=== PATIENT | female | born 1995 | race Caucasian/White ===

== ENCOUNTER 2021-04-22 11:03 | Emergency (ER) | payer OTHER ==
[2021-04-22 11:19] VITALS: BP 101/66; PULSE 93; TEMP 98.3; BMI 21.9
== END 2021-04-22 12:09 | disposition home or self-care (01) ==
LOC: JERFT 11:03
DX: R22.0 Localized swelling, mass and lump, head (principal)
CPT/HCPCS: 99281-25

== ENCOUNTER 2022-07-13 11:15 | Emergency (ER) | payer OTHER ==
[2022-07-13 11:57] VITALS: BP 97/65; PULSE 89; RESP 19; TEMP 98.8; BMI 22.8
== END 2022-07-13 13:55 | disposition home or self-care (01) ==
LOC: JER 11:15
DX: B34.9 Viral infection, unspecified (principal)
CPT/HCPCS: 0241U-QW; 99283-25

== ENCOUNTER 2022-12-06 15:59 | Emergency (ER) | payer OTHER ==
[2022-12-06 16:17] VITALS: BP 97/58; PULSE 104; RESP 18; TEMP 97.9; BMI 24.7
[2022-12-06 18:34] LABS: BASO % 0.2 % (0-2.0); EOS % 1.2 % (0-4.5); HEMATOCRIT 40.6 % (32.4-45.2); HEMOGLOBIN 14.2 GM/dL (10.7-15.3); LYMPH % 21.3 % (8-40); MCH 28.2 pg (25.7-33.7); MCHC 34.8 g/dl (32.0-36.0); MEAN CELL VOLUME 80.8 fl (80-96); MEAN PLT VOLUME 8.4 fl (7.5-11.1); MONO % 5.1 % (3.8-10.2); NEUT % 72.2 % (42.8-82.8); PLATELET COUNT 320 10^3/uL (134-434); RBC 5.03 M/mm3 (3.60-5.2); RDW 12.8 % (11.6-15.6); WHITE BLOOD COUNT 10.1 K/mm3 (4.0-10.0)
[2022-12-06 18:47] LABS: CHLORIDE 105 mmol/L (98-107); SODIUM 138 mmol/L (136-145)
[2022-12-06 18:49] LABS: CALCIUM 9.7 mg/dL (8.5-10.1)
[2022-12-06 18:50] LABS: ANION GAP 5 MMOL/L (8-16); BLOOD UREA NITROGEN 9.4 mg/dL (7-18); CO2 29 mmol/L (21-32); GLUCOSE,RANDOM 92 mg/dL (74-106)
[2022-12-06 18:53] LABS: CREATININE 0.6 mg/dL (0.55-1.3)
[2022-12-06 19:11] LABS: ERYTHROCYTE SEDIMENTATION RATE 5 mm/hr (0-20)
[2022-12-06] MEDS ORDERED: ACETAMINOPHEN 1000 MG/100 ML BAG IVPB ONE (19:15)
[2022-12-06] MEDS ORDERED: KETOROLAC TROMETHAMINE 30 MG/1 ML VIAL IVPUSH ONE (19:15)
[2022-12-06] MEDS ORDERED: KETOROLAC TROMETHAMINE 30 MG/1 ML VIAL ONE (19:59)
[2022-12-06] MEDS ORDERED: ACETAMINOPHEN INJECTION 100 ML IVPB ONE (19:59)
== END 2022-12-06 20:55 | disposition home or self-care (01) ==
LOC: JER 15:59
PROC: 3E033NZ Introduction of Analgesics, Hypnotics, Sedatives into Peripheral Vein, Percutaneous Approach (ICD-10-PCS; principal; 2022-12-06)
PROC: 3E0333Z Introduction of Anti-inflammatory into Peripheral Vein, Percutaneous Approach (ICD-10-PCS; 2022-12-06)
DX: R07.89 Other chest pain (principal)
CPT/HCPCS: 36415; 71046-TC-FY; 80048; 84443; 84484; 85025; 85651; 86140; 93005; 93010; 99284-25

== ENCOUNTER 2023-09-04 19:33 | Emergency (ER) | payer OTHER ==
[2023-09-04 19:55] VITALS: BP 100/64; PULSE 88; RESP 18; TEMP 98.4; BMI 19.9
[2023-09-04 22:21] LABS: THROAT:GRP A STREP DETECTED (NOTDETECTED)
[2023-09-04] MEDS ORDERED: AZITHROMYCIN 500 MG TABLET PO ONE (22:49)
[2023-09-04] MEDS ORDERED: AZITHROMYCIN 500 MG TABLET ONE (23:24)
== END 2023-09-04 23:38 | disposition home or self-care (01) ==
LOC: JERFT 19:33 → JER 19:33 → JERFT 23:38
DX: R05.9 Cough, unspecified (principal); R09.81 Nasal congestion; R51.9 Headache, unspecified; J10.1 Influenza due to other identified influenza virus with other respiratory manifestations; J03.00 Acute streptococcal tonsillitis, unspecified; Z20.822 Contact with and (suspected) exposure to COVID-19
CPT/HCPCS: 0241U-QW; 87651; 99283-25

== ENCOUNTER 2023-12-21 19:04 | Emergency (ER) | payer OTHER ==
[2023-12-21 19:13] VITALS: PULSE 85; RESP 19; TEMP 98.7; BMI 21.5
[2023-12-21 19:14] VITALS: BP 98/69
[2023-12-21] MEDS ORDERED: diphenhydrAMINE HCL 25 MG CAPSULE (FP) PO ONE (19:49)
[2023-12-21] MEDS ORDERED: DEXAMETHASONE SOD PHOSPHATE 10 MG/1 ML VIAL ONE (19:49)
[2023-12-21] MEDS: DEXAMETHASONE SOD PHOSPHATE 10 MG/1 ML VIAL PO ONE (19:52)
[2023-12-21] MEDS: diphenhydrAMINE HCL 25 MG CAPSULE (FP) PO ONE (19:52)
== END 2023-12-21 20:16 | disposition home or self-care (01) ==
LOC: JERFT 19:04
DX: L23.9 Allergic contact dermatitis, unspecified cause (principal); R21 Rash and other nonspecific skin eruption
CPT/HCPCS: 99283-25; J1100

== ENCOUNTER 2024-04-27 16:53 | Emergency (ER) | payer OTHER ==
[2024-04-27 17:06] VITALS: BP 91/61; PULSE 90; RESP 20; TEMP 98.8; BMI 21.5
[2024-04-27 18:26] LABS: BASO % 0.3 % (0-2.0); EOS % 1.4 % (0-4.5); HEMATOCRIT 37.4 % (32.4-45.2); HEMOGLOBIN 13.2 GM/dL (10.7-15.3); MCH 29.1 pg (25.7-33.7); MCHC 35.2 g/dl (32.0-36.0); MEAN CELL VOLUME 82.5 fl (80-96); MEAN PLT VOLUME 7.9 fl (7.5-11.1); MONO % 6.5 % (3.8-10.2); NEUT % 63.8 % (42.8-82.8); PLATELET COUNT 322 10^3/uL (134-434); RBC 4.53 M/mm3 (3.60-5.2); RDW 13.1 % (11.6-15.6); WHITE BLOOD COUNT 8.2 K/mm3 (4.0-10.0)
[2024-04-27 18:50] LABS: CHLORIDE 106 mmol/L (98-107); SODIUM 140 mmol/L (136-145)
[2024-04-27 18:52] LABS: CALCIUM 8.9 mg/dL (8.5-10.1)
[2024-04-27 18:53] LABS: ANION GAP 6 mmol/L (4-13); BLOOD UREA NITROGEN 8.5 mg/dL (7-18); CO2 28 mmol/L (21-32); GLUCOSE,RANDOM 79 mg/dL (74-106)
[2024-04-27 18:56] LABS: CREATININE 0.6 mg/dL (0.55-1.3); SGOT/AST 8 U/L (15-37); SGPT/ALT 15 U/L (13-61)
[2024-04-27 18:57] LABS: BILIRUBIN,TOTAL 0.3 mg/dL (0.2-1); TOT PROT 7.4 g/dl (6.4-8.2)
[2024-04-27 18:59] LABS: ALK PHOS 54 U/L (45-117)
== END 2024-04-27 19:13 | disposition home or self-care (01) ==
LOC: JER 16:53
DX: R00.2 Palpitations (principal)
CPT/HCPCS: 36415; 71046-TC-FY; 80053; 82550; 84439; 84443; 84484; 85025; 93005; 93010; 99285-25

== ENCOUNTER 2024-06-04 13:25 | Emergency (ER) | payer OTHER ==
[2024-06-04 13:39] VITALS: BP 91/60; PULSE 84; RESP 18; TEMP 98.6; BMI 21.5
== END 2024-06-04 14:16 | disposition home or self-care (01) ==
LOC: JERFT 13:25
DX: Z71.1 Person with feared health complaint in whom no diagnosis is made (principal); M79.89 Other specified soft tissue disorders; R51.9 Headache, unspecified
CPT/HCPCS: 93005; 93010; 99284-25